=== PATIENT | female | born 1965 | race Caucasian/White ===

== ENCOUNTER 2021-10-29 01:30 | Outpatient (CLI) | payer MEDICAID, SELFPAY ==
[2021-10-29 09:00] VITALS: BP 188/119; PULSE 80; RESP 20; TEMP 37.1; O2SAT 98
--- NOTE | 2021-10-29 09:23 | NUR.NOTE ---
Nursing Note: Patient arrived at 0830 for her MAB appointment, patient appeared pleasant and able to express self, stated exact date, time and year and able to verify her name and .Patient reported no fever or pain or SOB, stated that onset of symptoms was around Thursday last week with sneezing and some unproductive cough, stuffy head, body ache and loss of taste.Patient stated that she a Que and Que covid vaccine already few months ago. Procedure was explained and patient stated she understands. Set of vital signs obtained, patient was noted to have abnormal blood pressure readings both manually and autocuff. Blood pressure autocuff readings of 188/119 (Right arm), 1743/119 (Left arm), 187/123 (Right arm), and manual readings of 183/121 left arm obtained. Patient reported that she 'always has high B/P readings everytime she goes for a doctor's visit, and normal readings while at home. Patient reported that she smokes cigarets and took coffee this morning. Patient denied headache or any abnormal feelings. Doctor Govea was notified of blood pressure readings and patient's assessments, Dr. Govea recommended ER visit to evaluate for hypertensive emergency and to hold MAB until stable blood pressure readings are obtained. Patient was notified of MD's recommendations, Patient stated that her blood pressure readings are not going to change, patient declined ER visit and stated that she will go home.
[2021-10-29 09:41] VITALS: RESP 20; O2SAT 98
== END 2021-10-29 01:31 | disposition home or self-care (01) ==
PROVIDERS: PCP Nurse Practitioner Adult Health; Visit Provider Family Medicine

== ENCOUNTER 2021-12-16 19:29 | Outpatient (REF) | payer MEDICAID, SELFPAY ==
[2021-12-16 20:20] LABS: Anion Gap 9.2 mmol/L (3-11); BUN 18 mg/dL (7-18); CO2 25.8 mmol/L (21.0-32.0); Calcium 9.5 mg/dL (8.5-10.1); Chloride 105 mmol/L (98-107); Estimated GFR 57.35 (mL/min/1.73m2); Glucose 90 mg/dL (74-106); Potassium 4.3 mmol/L (3.5-5.1); Sodium 140 mmol/L (136-145); TSH (W/Ref FT4) 5.67 uIU/mL (0.36-3.74)
[2021-12-16 20:21] LABS: Hemoglobin A1C 5.7 % (<5.7)
[2021-12-16 20:47] LABS: Calculated LDL 113 mg/dL (<100); Cholesterol 202 mg/dL (<200); HDL Cholesterol 55 mg/dL (40-60); Triglyceride 170 mg/dL (<150)
[2021-12-16 21:02] LABS: FREE T4 0.92 ng/dL (0.76-1.46)
[2021-12-18 09:25] LABS: Hepatitis B Surface Ag Negative (Negative)
[2021-12-18 10:16] LABS: HIV-1/2 Ag & Ab Screen Negative (Negative)
[2021-12-18 11:17] LABS: Hepatitis C Ab w Rflx HCV PCR Reactive (Negative)
[2021-12-19 13:07] LABS: HCV RNA Detection Quantitative 2480000 IU/mL (Undetected); HCV RNA Qualitative Detected (Undetected)
== END 2021-12-16 19:30 | disposition home or self-care (01) ==
LOC: NCHCN 19:29
PROVIDERS: PCP Nurse Practitioner Adult Health; Visit Provider Family Medicine
DX: I10 Essential (primary) hypertension (principal); Z11.4 Encounter for screening for human immunodeficiency virus [HIV]; R79.89 Other specified abnormal findings of blood chemistry; Z11.59 Encounter for screening for other viral diseases; Z00.00 Encounter for general adult medical examination without abnormal findings
CPT/HCPCS: 80048; 80061; 86803; 87340; 87389; 87522; 83036; 84439; 84443

== ENCOUNTER 2022-02-11 00:43 | Outpatient (CLI) | payer MEDICAID, SELFPAY ==
--- NOTE | 2022-02-11 | DI.MAMMO_ITS ---
Exam(s) MAMMO SCREENING EXAM: MAMMO SCREENING CLINICAL HISTORY: [facility] CARE Z00.00, SCREENING FOR BREAST CANCER. TECHNIQUE: Bilateral full field digital CC and MLO mammographic images were obtained with 3D tomosyn thesis and utilizing computer aided detection (CAD). COMPARISON: None. This is a baseline screening mammogram on this 56-year-old patient. FINDINGS: There are no new spiculated masses nor malignant appearing microcalcification groups. There is no significant architectural distortion nor skin thickening-retraction. IMPRESSION: No radiographic evidence of malignancy. BI-RADS Category 1 - Negative Breast Density - Category B - Scattered areas of fibroglandular density Breast density Category C or D implies that the patient has dense breast tissue. Dense breast tissue can make it harder to find cancer on a mammogram. Dense breast tissue is also associated with an incr eased risk of breast cancer. This information about the result of the mammogram report was provided to the patient to raise their awareness. Use this report when you speak with the patient about their risks for breast cancer, which includes their family history. At that time, you may recommend additional screening tests (Ultrasoun d or MRI) as these tests may add significant information. A negative radiographic report should not delay biopsy if a dominant or clinically suspicious mass is present. Up to ten percent of cancers are not identified on mammography. A negative report may reinforce clinical impression. Adenosis and dense breasts may obscure an underlying neoplasm. False positive reports average 6 to 10%. Patient will receive a letter notifying them of these results.
== END 2022-02-11 01:03 ==
PROVIDERS: PCP Family Medicine; Visit Provider Family Medicine
DX: Z12.31 Encounter for screening mammogram for malignant neoplasm of breast (principal)
CPT/HCPCS: 77063; 77067

== ENCOUNTER 2022-06-04 10:01 | Outpatient (REF) | payer MEDICAID, SELFPAY ==
[2022-06-04 16:26] LABS: HGB 12.8 g/dL (11.2-15.7); MCH 30.4 pg (27.0-33.0); MCHC 33.7 % (32.0-36.0); MCV 90 fL (80-95); MPV 10.8 fL (8.0-11.0); Platelet Count 120 10^3/uL (130-400); RBC 4.21 10^6/uL (3.93-5.22); RDW 12.4 % (11.7-14.6); RDW-SD 41.1 fL; WBC 2.94 10^3/uL (4.4-10.8)
[2022-06-04 17:21] LABS: ALT 229 U/L (14-59); AST 172 U/L (15-37); Albumin 3.9 g/dL (3.4-5.0); Alkaline Phosphatase 170 U/L (46-116); Anion Gap 10.5 mmol/L (3-11); BUN 18 mg/dL (7-18); Bilirubin, Total 0.4 mg/dL (0.2-1.0); CO2 26.5 mmol/L (21.0-32.0); Calcium 9.4 mg/dL (8.5-10.1); Chloride 106 mmol/L (98-107); Estimated GFR 57.15 (mL/min/1.73m2); Glucose 104 mg/dL (74-106); Potassium 4.6 mmol/L (3.5-5.1); Sodium 143 mmol/L (136-145); TSH (W/Ref FT4) 5.36 uIU/mL (0.36-3.74)
[2022-06-04 17:51] LABS: FREE T4 0.97 ng/dL (0.76-1.46)
[2022-06-06 08:40] LABS: HBs Antibody, Quant <3.1 mIU/mL (See Note); Hepatitis B Surface Ab Negative (See Note)
[2022-06-06 08:53] LABS: Hepatitis B Surface Ag Negative (Negative)
[2022-06-06 09:28] LABS: HIV-1/2 Ag & Ab Screen Negative (Negative)
[2022-06-06 09:41] LABS: Hep B Core Antibody Negative (Negative)
[2022-06-06 10:02] LABS: Hep A Total Ab w Rflx IgM Negative (Negative)
[2022-06-09 21:42] LABS: HCV Genotype 3 (Undetected)
== END 2022-06-04 10:02 | disposition home or self-care (01) ==
LOC: NCHCN 10:01
PROVIDERS: PCP Family Medicine; Visit Provider Family Medicine
DX: B19.20 Unspecified viral hepatitis C without hepatic coma (principal); R94.6 Abnormal results of thyroid function studies
CPT/HCPCS: 80053; 85027; 86704; 86706; 86709; 87340; 87389; 84439; 84443; 87521

== ENCOUNTER 2022-07-07 08:13 | Outpatient (REF) | payer MEDICAID, SELFPAY ==
--- NOTE | 2022-07-07 07:50 | PAPFT_PTH ---
PATIENT: Cristina Barclay LOC: [facility] U#:[id number] AGE/SX: 57/F ROOM: RE07/07/[address]: Dalton Trujillo : 1965 BED: DIS: 07/07/2022 SPEC #: [id number] RECD: 07/07/22 17:46 STATUS: TRISTENSpencer REQ #: [id number] KARIE: 07/07/22 07:[address]: Dalton Trujillo DEPT: [facility], [facility] Cytology RECD BY: Penelope Wilson ENTERED: 07/07/22 17:47 SP TYPE: PAPFT OTHR DR: Mitchell Mathis Tissues: 1 - CX/ENDOCX FOR PAP SMEARS Procedures: PAP THIN PREP/[facility]VM Screening HPV DNA PROBE Comments: [id number]
== END 2022-07-07 08:14 | disposition home or self-care (01) ==
LOC: LBN 08:13
PROVIDERS: PCP Family Medicine; Visit Provider Nurse Practitioner Family
DX: Z12.4 Encounter for screening for malignant neoplasm of cervix (principal); Z11.51 Encounter for screening for human papillomavirus (HPV)
CPT/HCPCS: 88142; 87624

== ENCOUNTER 2022-09-15 18:36 | Outpatient (REF) | payer MEDICAID, SELFPAY ==
[2022-09-15 20:15] LABS: HCT 39.5 % (36.0-46.0); HGB 13.4 g/dL (11.2-15.7); MCHC 33.9 % (32.0-36.0); MCV 88 fL (80-95); MPV 10.4 fL (8.0-11.0); Platelet Count 290 10^3/uL (130-400); RBC 4.47 10^6/uL (3.93-5.22); RDW 11.8 % (11.7-14.6); RDW-SD 38.4 fL; WBC 5.02 10^3/uL (4.4-10.8)
[2022-09-15 20:28] LABS: ALT 41 U/L (14-59); AST 41 U/L (15-37); Albumin 4.1 g/dL (3.4-5.0); Alkaline Phosphatase 147 U/L (46-116); Anion Gap 10.8 mmol/L (3-11); BUN 17 mg/dL (7-18); Bilirubin, Total 0.5 mg/dL (0.2-1.0); CO2 24.2 mmol/L (21.0-32.0); CREATININE 1.1 mg/dL (0.55-1.02); Calcium 9.5 mg/dL (8.5-10.1); Chloride 102 mmol/L (98-107); Estimated GFR 58.61 (mL/min/1.73m2); Glucose 89 mg/dL (74-106); Potassium 4.9 mmol/L (3.5-5.1); Sodium 137 mmol/L (136-145); Total Protein 7.7 g/dL (6.4-8.2)
[2022-09-17 10:20] LABS: Hepatitis C Ab w Rflx HCV PCR Negative (Negative)
== END 2022-09-15 18:37 | disposition home or self-care (01) ==
LOC: NCHCN 18:36
PROVIDERS: PCP Family Medicine; Visit Provider Family Medicine
DX: B19.20 Unspecified viral hepatitis C without hepatic coma (principal)
CPT/HCPCS: 80053; 85027; 86803

== ENCOUNTER 2022-10-13 16:27 | Outpatient (REF) | payer MEDICAID, SELFPAY ==
[2022-10-15 13:51] LABS: HCV RNA Qualitative Undetected (Undetected)
== END 2022-10-13 16:28 | disposition home or self-care (01) ==
LOC: NCHCN 16:27
PROVIDERS: PCP Family Medicine; Visit Provider Family Medicine
DX: B19.20 Unspecified viral hepatitis C without hepatic coma (principal)
CPT/HCPCS: 87522

== ENCOUNTER 2023-01-19 11:45 | Outpatient (CLI) | payer MEDICAID, SELFPAY ==
--- NOTE | 2023-01-19 10:32 | DI.RAD_ITS ---
Exam(s) XR CHEST 2V PA LATERAL EXAM: XR CHEST 2V PA LATERAL CLINICAL HISTORY: COUGH, R05.8 TECHNIQUE: 2D digital imaging was performed. COMPARISON: No exams were available for comparison FINDINGS: HEART: Normal size. Aorta: Not dilated. PULMONARY VASCULATURE: Normal. LUNGS: Clear. PLEURAL SPACE: No pleural effusion or pneumothorax. BONE:Unremarkable for age. IMPRESSION: No acute abnormality. DATA REPOSITORY: RADIATION DOSE DELIVERED:
== END 2023-01-19 12:05 ==
PROVIDERS: PCP Family Medicine; Visit Provider Nurse Practitioner Family
DX: R05.8 Other specified cough (principal)
CPT/HCPCS: 71046